=== PATIENT | female | born 1970 | race Asian ===

== ENCOUNTER 2019-07-29 12:43 | Emergency (ER) | payer MEDICAID ==
[~2019-07-29] VITALS: Ht 162.6 cm; Wt 47.3 kg
--- NOTE | 2019-07-29 13:16 | NUR ---
LATE ENTRY FOR 1306: ASSUMING PT CARE AT THIS TIME. PT NOT IN GOWN. PT ASKED TO CHANGE INTO GOWN. UA BEDSIDE SENT TO LAB.
--- NOTE | 2019-07-29 13:18 | NUR ---
49 Y/O FEMALE PRESENTS TO ED WITH C/O ABDOMINAL PAIN. PER PT "IT'S HARD FOR ME TO PEE SOMETIMES. I FEEL LIKE I HAVE TO GO AND NOTHING COMES OUT." NADN. PT PLACED ON CONT PULSE OX,NIBP. NO C/O N/V/D, TRAUMA, SYNCOPE, CP, SOB. VSS.
[2019-07-29 13:40] LABS: MICROSCOPIC NOT IND
[2019-07-29 14:00] LABS: CULTURE INDICATED? NO; HCG UR SG 1.025 (1.003-1.030)
--- NOTE | 2019-07-29 14:07 | NUR ---
CORNELIUS RN: ALL RESULTS BACK AT THIS TIME, CHART UP FOR RECHECK
--- NOTE | 2019-07-29 14:25 | NUR ---
LUNCH RN: TO BEDSIDE TO RECHECK PT. ADDITIONAL ORDERS RECEIVED FOR LABS AND US AT THIS TIME. PT GIVEN CRACKERS WITH PERMISSION
--- NOTE | 2019-07-29 14:31 | NUR ---
ASSUMING PT CARE AT THIS TIME. BEDSIDE REPORT FROM VISH KRAUSE RN.
--- NOTE | 2019-07-29 14:55 | NUR ---
PT TO IMAGING
[2019-07-29 15:35] LABS: BASOPHILS # (AUTO) 0.02 x10^3/uL (0-0.1); BASOPHILS % (AUTO) 1 % (0-1); EOSINOPHILS # (AUTO) 0.23 x10^3/uL (0-0.4); EOSINOPHILS % (AUTO) 5 % (1-7); LYMPHOCYTES % (AUTO) 29 % (22-44); MD NO; MEAN CORPUSCULAR HGB CONC 33.3 g/dL (32.4-35.8); MEAN CORPUSCULAR VOLUME 92.9 fL (80-100); MEAN PLATELET VOLUME 7.5 fL (7.4-10.4); MONOCYTES # (AUTO) 0.36 x10^3/uL (0.2-0.8); MONOCYTES % (AUTO) 9 % (2-9); NEUTROPHILS % (AUTO) 57 % (42-75); PLATELET COUNT 239 x10^3/uL (130-400); RED BLOOD COUNT 4.37 x10^6/uL (3.82-5.3); RED CELL DISTRIBUTION WIDTH 14.2 % (9.6-15.2)
[2019-07-29 15:36] VITALS: BP 134/88
[2019-07-29 15:47] LABS: ALANINE AMINOTRANSFERASE 66 U/L (12-78); ALBUMIN 3.7 g/dL (3.4-5.0); ANION GAP 3 mmol/L (5-15); CALCIUM 8.4 mg/dL (8.5-10.1); CHLORIDE 110 mmol/L (98-107)
[2019-07-29 15:50] LABS: ALKALINE PHOSPHATASE 79 U/L (45-117); BILIRUBIN,TOTAL 0.6 mg/dL (0.2-1.0); CREATININE 0.51 mg/dL (0.55-1.02)
--- NOTE | 2019-07-29 16:29 | NUR ---
Patient/Caregiver given discharge instructions and they have confirmed that they understand the instructions. Patient ambulatory with steady gait. pt left with all personal belongings.
== END 2019-07-29 16:35 ==
LOC: ED 13:16
DX: R10.2 Pelvic and perineal pain (principal); F17.200 Nicotine dependence, unspecified, uncomplicated
CPT/HCPCS: 36415; 76830; 80053; 81003; 81025; 85025; 99284

== ENCOUNTER 2019-10-12 19:42 | Emergency (ER) | payer MEDICAID ==
[~2019-10-12] VITALS: Ht 162.6 cm; Wt 46.0 kg
--- NOTE | 2019-10-12 20:03 | NUR ---
PT AMBULATED BACK TO ROOM WITHOUT DIFFICULTY.
--- NOTE | 2019-10-12 20:10 | NUR ---
ERP WAS IN TO SEE PT. PT AMBULATED TO BR, INSTRUCTED ON CLEAN CATCH URINE SAMPLE.
[2019-10-12] MEDS ORDERED: ACETAMINOPHEN 500 MG TABLET ONE (20:27)
[2019-10-12] MEDS ORDERED: ACETAMINOPHEN 500 MG TABLET PO ONE (20:30)
--- NOTE | 2019-10-12 20:44 | NUR ---
PT MEDICATED FOR PAIN PER ORDERS. BLADDER SCAN DONE; PVR = 25ML.
[2019-10-12 20:46] LABS: HCG UR SG 1.012 (1.003-1.030)
[2019-10-12 20:48] LABS: MICROSCOPIC INDICATED
[2019-10-12 20:49] LABS: CULTURE INDICATED? YES
[2019-10-12 21:05] LABS: BASOPHILS # (AUTO) 0.05 x10^3/uL (0-0.1); BASOPHILS % (AUTO) 1 % (0-1); EOSINOPHILS # (AUTO) 0.43 x10^3/uL (0-0.4); EOSINOPHILS % (AUTO) 5 % (1-7); LYMPHOCYTES # (AUTO) 1.75 x10^3/uL (1-3.4); LYMPHOCYTES % (AUTO) 18 % (22-44); MD NO; MEAN CORPUSCULAR HEMOGLOBIN 30.5 pg (27.0-34.8); MEAN CORPUSCULAR HGB CONC 33.1 g/dL (32.4-35.8); MEAN CORPUSCULAR VOLUME 92.3 fL (80-100); MEAN PLATELET VOLUME 7.5 fL (7.4-10.4); MONOCYTES # (AUTO) 0.55 x10^3/uL (0.2-0.8); MONOCYTES % (AUTO) 6 % (2-9); NEUTROPHILS # (AUTO) 6.78 x10^3/uL (1.8-6.8); NEUTROPHILS % (AUTO) 71 % (42-75); PLATELET COUNT 251 x10^3/uL (130-400); RED BLOOD COUNT 4.24 x10^6/uL (3.82-5.3); RED CELL DISTRIBUTION WIDTH 14.5 % (9.6-15.2)
[2019-10-12 21:13] LABS: ALBUMIN 3.6 g/dL (3.4-5.0); ANION GAP 4 mmol/L (5-15); CALCIUM 8.3 mg/dL (8.5-10.1); CHLORIDE 108 mmol/L (98-107); CREATININE 0.59 mg/dL (0.55-1.02)
[2019-10-12 22:00] VITALS: BP 119/82
[2019-10-12] MEDS ORDERED: CEFDINIR 300 MG CAPSULE PO ONE (22:00)
--- NOTE | 2019-10-12 22:00 | NUR ---
ERP AT FOR RECHECK.
--- NOTE | 2019-10-12 22:01 | NUR ---
REPORTED TO RODNEY JOEL.
--- NOTE | 2019-10-12 22:15 | NUR ---
REPORT FROM DEYA JOEL. PT RESTING, AWAITING RESULTS OF UA.
[2019-10-12] MEDS ORDERED: CEFDINIR 300 MG CAPSULE ONE (22:20)
--- NOTE | 2019-10-12 22:25 | NUR ---
DISCHARGE INSTRUCTIONS GIVEN TO PATIENT ALONG WITH FIRST DOSE OF ANTIBIOTIC PO. RN DISCUSSED USE OF OMNICEF, HOW TO STORE, HOW TO DISPOSE AND SIDE EFFECTS. RN STRESSED THE IMPORTANCE OF FINISHING ALL MEDICATIONS, AND TO MAKE A FOLLOW UP APPOINTMENT TO ENSURE THE INFECTION HAS CLEARED UP. VITALS WERE JUST TAKEN BY DEYA JOEL PRIOR TO LEAVING AT 2215, SO THIS RN DID NOT REPEAT. PT GIVEN PRESCRIPTION. PT AND AMBULATE OUT OF ED PER PEDIS.
== END 2019-10-12 22:29 | disposition home or self-care (01) ==
LOC: ED 22:05
DX: N10 Acute pyelonephritis (principal); M54.5 Low back pain; I10 Essential (primary) hypertension; R30.0 Dysuria
CPT/HCPCS: 36415; 80048; 81001; 81025; 82040; 85025; 87086; 99284

== ENCOUNTER 2020-05-11 15:19 | Emergency (ER) | payer SELFPAY ==
[~2020-05-11] VITALS: Ht 160 cm; Wt 49.3 kg
[2020-05-11 16:08] LABS: ALANINE AMINOTRANSFERASE 29 U/L (12-78); ALBUMIN 3.7 g/dL (3.4-5.0); ANION GAP 3 mmol/L (5-15); CALCIUM 8.7 mg/dL (8.5-10.1); CHLORIDE 108 mmol/L (98-107); CREATININE 0.66 mg/dL (0.55-1.02)
[2020-05-11 16:13] LABS: ALKALINE PHOSPHATASE 93 U/L (45-117); BILIRUBIN,TOTAL 0.4 mg/dL (0.2-1.0); TOTAL PROTEIN 7.3 g/dL (6.4-8.2)
--- NOTE | 2020-05-11 16:13 | NUR ---
PT C/O DIFFICULTY UTINATING X 2 DAYS. PT STATES SHE ALSO HAS INCREASED URGENCY AND FREQUENCY WITH PAIN UTINATING. PT HAS A HX OF UTI 6 MONTHS AGO. PT DENIES ABD PAIN.
[2020-05-11 16:17] LABS: BASOPHILS % (AUTO) 1 % (0-1); EOSINOPHILS % (AUTO) 3 % (1-7); LYMPHOCYTES % (AUTO) 23 % (22-44); MEAN CORPUSCULAR HEMOGLOBIN 29.4 pg (27.0-34.8); MEAN CORPUSCULAR HGB CONC 32.5 g/dL (32.4-35.8); MEAN PLATELET VOLUME 7.5 fL (7.4-10.4); MONOCYTES % (AUTO) 5 % (2-9); NEUTROPHILS % (AUTO) 68 % (42-75); PLATELET COUNT 322 x10^3/uL (130-400); RED BLOOD COUNT 4.32 x10^6/uL (3.82-5.3); RED CELL DISTRIBUTION WIDTH 14.1 % (9.6-15.2)
[2020-05-11 16:18] LABS: MD NO
[2020-05-11 16:51] LABS: MICROSCOPIC INDICATED
[2020-05-11 17:41] VITALS: BP 115/78
--- NOTE | 2020-05-11 17:55 | NUR ---
PT REC'VD DISCHARGE INSTRUCTIONS AND EDUCAITON. PT STATES NO QUESTIONS. PT AMBULATED TO DC DESK, STEADY GAIT.
== END 2020-05-11 17:59 | disposition home or self-care (01) ==
LOC: ED 17:02
DX: N30.00 Acute cystitis without hematuria (principal); M54.5 Low back pain; I10 Essential (primary) hypertension; F17.200 Nicotine dependence, unspecified, uncomplicated
CPT/HCPCS: 36415; 76700; 80053; 81001; 83690; 84703; 85025; 87086; 99284